=== PATIENT | female | born 1970 | race Two or more races ===

== ENCOUNTER 2017-03-17 08:51 | Day surgery (SDC) | payer MEDICAID ==
[~2017-03-17] VITALS: Ht 167.6 cm; Wt 128.4 kg
[2017-03-17] MEDS ORDERED: IODIXANOL 320MG/ML 100ML BTL IV ONE (09:20)
[2017-03-17] MEDS ORDERED: LIDOCAINE 2%HCL (LOCAL ANESTH.) INJ 20ML MDV ONE (09:20)
[2017-03-17] MEDS ORDERED: MIDAZOLAM HCL 1MG/1ML-2 ML VIAL ONE ×2 (10:05→10:46)
[2017-03-17] MEDS ORDERED: fentaNYL CITRATE 100 MCG/2 ML VL ONE (10:05)
[2017-03-17] MEDS ORDERED: ANGIOMAX 250 MG VIAL IV ONE (10:06)
[2017-03-17] MEDS ORDERED: SODIUM CHL 0.9% 0 ML ONE (10:06)
[2017-03-17] MEDS ORDERED: VERAPAMIL 2.5MG/ML INJ 2ML VIAL IV ONE (10:07)
[2017-03-17] MEDS ORDERED: HEPARIN SODIUM (PORCINE) 5000 UNITS/ML 1ML VIAL ONE (10:49)
[2017-03-17] MEDS ORDERED: HYDROcodone-ACET 5/325MG TAB PO PRN (12:15)
[2017-03-17] MEDS ORDERED: ACETAMINOPHEN 500 MG TAB PO PRN (12:15)
== END 2017-03-17 13:59 | disposition home or self-care (01) ==
LOC: CATH 08:51
PROVIDERS: ATTEND Internal Medicine
DX: R94.39 Abnormal result of other cardiovascular function study (principal); I10 Essential (primary) hypertension
CPT/HCPCS: 93458; C1760; C1769; C1894; J1644; J3010; J7030; 99152; J2250; Q9967

== ENCOUNTER 2017-07-10 23:57 | Inpatient (IN) | payer MEDICAID ==
[~2017-07-10] VITALS: Ht 167.6 cm; Wt 129.7 kg
[2017-07-11] MEDS ORDERED: ALBUTEROL SULF 2.5 MG/0.5ML(0.5%) NEB SOLN NEB ONE (00:45)
[2017-07-11] MEDS ORDERED: methylPREDNISolone SOD SUCC 125 MG/2 ML VL IV ONE (00:45)
[2017-07-11] MEDS ORDERED: IPRATROPIUM BROM 0.5 MG/2.5ML INH SOL NEB ONE (00:45)
[2017-07-11 01:00] LABS: Basophils # (auto) 0.1 uL; Basophils % (auto) 1.1 % (0.0-2.0); Eosinophils # (auto) 0.3 uL; Eosinophils % (auto) 4.4 % (0.0-7.0); Hematocrit 46.1 % (36.0-46.0); Hemoglobin 15.3 g/dL (12.2-16.2); Lymphocytes % (auto) 32.6 % (10.0-50.0); Mean Corpuscular Hemoglobin 29.5 pg (28.0-32.0); Mean Corpuscular Hgb Conc. 33.2 g/dL (32.0-36.0); Mean Platelet Volume 8.6 fL (7.4-10.4); Monocytes # (auto) 0.7 uL; Monocytes % (auto) 11.4 % (0.0-12.0); Neutrophils # (auto) 3.1 uL; Neutrophils % (auto) 50.5 % (37.0-80.0); Platelet Count (auto) 296 10^3/uL (140-450); White Blood Cell 6.2 10^3/uL (4.4-10.8)
[2017-07-11 01:08] LABS: INR 0.97 (0.9-1.15); Partial Thromboplastin Time 28.5 sec (22.64-33.71); Prothrombin Time 10.6 sec (9.37-12.3)
[2017-07-11 01:13] LABS: Albumin 3.5 g/dL (3.4-5.0); Anion Gap 8 (5-15); Aspartate Aminotransferase 77 U/L (15-37); BUN/Creatinine Ratio 9.2; Blood Urea Nitrogen 7 mg/dL (7-18); Calcium 8.7 mg/dL (8.5-10.1); Carbon Dioxide 23 mmol/L (21-32); Chloride 111 mmol/L (98-107); GFR African American 106 mL/min; GFR Non-African American 88 mL/min; Glucose 108 mg/dL (74-106); Potassium 3.9 mmol/L (3.5-5.1); Sodium 142 mmol/L (136-145)
[2017-07-11 01:18] LABS: Alkaline Phosphatase 92 U/L (45-117); Bilirubin, Total 0.3 mg/dL (0.2-1.0)
[2017-07-11 01:21] LABS: Temperature: 23.3 C (20.0-25.0)
[2017-07-11] MEDS ORDERED: ALPRAZolam 0.25 MG TAB PO PRN (04:45)
[2017-07-11] MEDS ORDERED: HYDROcodone-ACET 5/325MG TAB PO PRN (04:45)
[2017-07-11] MEDS ORDERED: ALBUTEROL SULF 2.5 MG/0.5ML(0.5%) NEB SOLN NEB PRN (04:45)
[2017-07-11] MEDS ORDERED: IPRATROPIUM BROM 0.5 MG/2.5ML INH SOL NEB PRN (04:45)
[2017-07-11] MEDS ORDERED: ACETAMINOPHEN 325 MG TAB PO PRN (04:45)
[2017-07-11] MEDS ORDERED: ONDANSETRON HCL 4 MG/2 ML VIAL IV PRN (04:45)
[2017-07-11] MEDS ORDERED: ENOXAPARIN SOD 40 MG/0.4 ML SYRINGE SC SCH (10:00)
[2017-07-11] MEDS ORDERED: methylPREDNISolone SOD SUCC 125 MG/2 ML VL IV SCH (10:00)
[2017-07-11] MEDS ORDERED: LISINOPRIL 10 MG TAB PO SCH (10:00)
[2017-07-11] MEDS ORDERED: FAMOTIDINE 20 MG TAB PO SCH (10:00)
[2017-07-11 12:00] VITALS: BP 129/82
[2017-07-11] MEDS ORDERED: ALBU0.084 NEB (13:27)
[2017-07-11] MEDS ORDERED: IPRASOL39 NEB (13:27)
[2017-07-11] MEDS ORDERED: PRED-559 PO (13:29)
[2017-07-11] MEDS ORDERED: LEVO500T21 PO (13:29)
[2017-07-11] MEDS ORDERED: LEVOFLOXACIN 500 MG TAB PO SCH (13:30)
[2017-07-11] MEDS ORDERED: guaiFENesin-DEXTROMETHORPHAN 5ML SYR PO PRN (13:30)
[2017-07-11 16:45] VITALS: BP 129/82
== END 2017-07-11 17:20 | disposition home health service (06) | DRG 140 ==
LOC: ER 07-11 00:03 → OVERFLOW 07-11 00:04 → EAST 07-11 08:18 → WEST WING 07-11 10:39
PROVIDERS: ADMIT Nurse Practitioner; ATTEND Internal Medicine
DX: J44.1 Chronic obstructive pulmonary disease with (acute) exacerbation (principal); E66.2 Morbid (severe) obesity with alveolar hypoventilation; I10 Essential (primary) hypertension; J45.901 Unspecified asthma with (acute) exacerbation; J98.11 Atelectasis; Z90.49 Acquired absence of other specified parts of digestive tract; Z90.710 Acquired absence of both cervix and uterus; Z88.1 Allergy status to other antibiotic agents; Z79.899 Other long term (current) drug therapy; Z86.73 Personal history of transient ischemic attack (TIA), and cerebral infarction without residual deficits; Z68.42 Body mass index [BMI] 45.0-49.9, adult
CPT/HCPCS: 36415; 71010; 80053; 83880; 84484; 85025; 85610; 85730; 94640; 96374

== ENCOUNTER 2018-02-20 00:17 | Emergency (ER) | payer MEDICAID ==
[~2018-02-20] VITALS: Ht 167.6 cm; Wt 129.3 kg
[~2018-02-20 00:17] MED LIST: ALBU0.084 NEB; IPRASOL39 NEB; LEVO500T21 PO; PRED-559 PO
[2018-02-20 01:10] LABS: Basophils # (auto) 0.1 uL; Basophils % (auto) 1.6 % (0.0-2.0); Eosinophils # (auto) 0.3 uL; Eosinophils % (auto) 4.9 % (0.0-7.0); Hematocrit 46.2 % (36.0-46.0); Hemoglobin 15.5 g/dL (12.2-16.2); Lymphocytes # (auto) 2.2 uL; Lymphocytes % (auto) 33.7 % (10.0-50.0); Mean Corpuscular Hemoglobin 30.1 pg (28.0-32.0); Mean Corpuscular Hgb Conc. 33.5 g/dL (32.0-36.0); Mean Corpuscular Volume 89.6 fL (80.0-100.0); Monocytes # (auto) 0.6 uL; Monocytes % (auto) 9.1 % (0.0-12.0); Neutrophils # (auto) 3.4 uL; Neutrophils % (auto) 50.7 % (37.0-80.0); Nucleated Red Blood Cells % 0.1 %; Platelet Count (auto) 264 10^3/uL (140-450); Red Blood Cells 5.15 10^6/uL (4.0-5.20); Red Cell Distribution Width 14.6 % (11.8-14.3); White Blood Cell 6.6 10^3/uL (4.4-10.8)
[2018-02-20 01:28] LABS: Albumin 3.5 g/dL (3.4-5.0); Anion Gap 8 (5-15); Calcium 8.8 mg/dL (8.5-10.1); Carbon Dioxide 17 mmol/L (21-32); Chloride 115 mmol/L (98-107); Glucose 104 mg/dL (74-106); Magnesium 2.3 mg/dL (1.6-2.6); Potassium 3.5 mmol/L (3.5-5.1); Sodium 140 mmol/L (136-145)
[2018-02-20 01:34] LABS: Alanine Aminotransferase 41 U/L (13-56); Alkaline Phosphatase 85 U/L (45-117); Aspartate Aminotransferase 41 U/L (15-37); BUN/Creatinine Ratio 8.9; Bilirubin, Total 0.4 mg/dL (0.2-1.0); Blood Urea Nitrogen 7 mg/dL (7-18); GFR African American 101 mL/min; GFR Non-African American 84 mL/min; Total Protein 7.7 g/dL (6.4-8.2)
[2018-02-20 03:24] LABS: Urine WBC None Seen /hpf (0 - 5)
[2018-02-20 03:57] LABS: Urine Bacteria NONE SEEN /hpf (None Seen); Urine Blood Negative /uL (Negative); Urine Specific Gravity 1.007 (1.001-1.035)
[2018-02-20 07:15] VITALS: BP 131/66
[2018-02-20] MEDS ORDERED: ASPirin 81 mg TAB PO ONE (08:15)
== END 2018-02-20 08:58 | disposition left against medical advice (07) ==
LOC: ER 00:17
DX: R07.89 Other chest pain (principal); M79.1 Myalgia; J44.9 Chronic obstructive pulmonary disease, unspecified; I10 Essential (primary) hypertension; Z90.49 Acquired absence of other specified parts of digestive tract; Z90.710 Acquired absence of both cervix and uterus
CPT/HCPCS: 36415; 71045; 80053; 81001; 83735; 84484; 85025; 93005

== ENCOUNTER 2023-05-28 08:16 | Emergency (ER) | payer MEDICAID ==
[~2023-05-28] VITALS: Ht 167.6 cm; Wt 124.6 kg
[~2023-05-28 08:16] MED LIST changes: -LEVO500T21 PO; +LEVO500T31 PO
[2023-05-28] MEDS ORDERED: MORPHINE SULFATE 4 MG/ML SYR/VIAL IV ONE (08:30)
[2023-05-28] MEDS ORDERED: PANTOPRAZOLE 40 MG/10 ML VIAL INJ IV ONE (08:30)
[2023-05-28] MEDS ORDERED: ONDANSETRON HCL 4 MG/2 ML VIAL IV ONE (08:30)
[2023-05-28] MEDS ORDERED: SODIUM CHLORIDE 0.9% 1,000 ML IVB ONE (08:30)
[2023-05-28 08:54] LABS: Basophils # (auto) 0.1 10 ^3/uL (0-0.2); Basophils % (auto) 0.9 % (0.0-2.0); Eosinophils # (auto) 0.1 10 ^3/uL (0-0.8); Eosinophils % (auto) 1.1 % (0.0-7.0); Hematocrit 45.4 % (36.0-46.0); Hemoglobin 15.2 g/dL (12.2-16.2); Lymphocytes # (auto) 0.4 10 ^3/uL (0.4-5.4); Lymphocytes % (auto) 4.7 % (10.0-50.0); Mean Corpuscular Hemoglobin 31.2 pg (28.0-32.0); Mean Corpuscular Hgb Conc. 33.4 g/dL (32.0-36.0); Mean Corpuscular Volume 93.5 fL (80.0-100.0); Monocytes # (auto) 0.4 10 ^3/uL (0-1.3); Neutrophils # (auto) 8.4 10 ^3/uL (1.6-8.6); Neutrophils % (auto) 89.3 % (37.0-80.0); Nucleated Red Blood Cells % 0.2 %; Red Blood Cells 4.85 10^6/uL (4.0-5.20); Red Cell Distribution Width 13.9 % (11.8-14.3); White Blood Cell 9.5 10^3/uL (4.4-10.8)
[2023-05-28 09:31] LABS: Potassium 3.3 mmol/L (3.5-5.1)
[2023-05-28 09:32] LABS: Albumin 3.6 g/dL (3.4-5.0)
[2023-05-28 09:35] LABS: Bilirubin, Total 3.8 mg/dL (0.2-1.0); Total Protein 7.6 g/dL (6.4-8.2)
[2023-05-28] MEDS ORDERED: POTASSIUM CHL 20MEQ/100ML 100 ML IV ONE (13:45)
[2023-05-28] MEDS ORDERED: PANTOPRAZOLE 40 MG/10 ML VIAL INJ IV SCH (16:15)
[2023-05-28] MEDS ORDERED: DEXTROSE (50%) 50ML SYRG IV PRN (16:15)
[2023-05-28] MEDS ORDERED: hydrALAZINE HCL 20 MG/ML VL IV PRN (16:15)
[2023-05-28] MEDS: ACCU-CHEK COMFORT CURVE STRIP VI SCH (17:01)
[2023-05-28] MEDS: InsuLIN REG 1unit/0.01ml Soln (100units/ml) SC SCH (17:08)
[2023-05-29] MEDS ORDERED: POTASSIUM CHL 20 Meq TABLET PO ONE (02:00)
[2023-05-29] MEDS: InsuLIN REG 1unit/0.01ml Soln (100units/ml) SC SCH ×2 (06:00)
[2023-05-29] MEDS: ACCU-CHEK COMFORT CURVE STRIP VI SCH ×2 (06:09)
[2023-05-29] MEDS ORDERED: ONDANSETRON HCL 4 MG/2 ML VIAL IV ONE ×3 (09:30→17:45)
[2023-05-29] MEDS ORDERED: MORPHINE SULFATE 4 MG/ML SYR/VIAL IV ONE ×3 (09:30→17:45)
[2023-05-29 09:56] LABS: Hepatitis A Ab IgM Negative; Hepatitis B Core IgM Negative
[2023-05-29 09:57] LABS: Hepatitis C Antibody Negative (Negative)
[2023-05-29 17:52] VITALS: BP 124/63
== END 2023-05-29 18:15 | disposition left against medical advice (07) ==
LOC: ER 08:16
DX: K85.90 Acute pancreatitis without necrosis or infection, unspecified (principal); E80.6 Other disorders of bilirubin metabolism; K80.50 Calculus of bile duct without cholangitis or cholecystitis without obstruction; J44.9 Chronic obstructive pulmonary disease, unspecified; I11.0 Hypertensive heart disease with heart failure; I50.9 Heart failure, unspecified; Z86.73 Personal history of transient ischemic attack (TIA), and cerebral infarction without residual deficits; E11.9 Type 2 diabetes mellitus without complications; Z90.49 Acquired absence of other specified parts of digestive tract; Z90.710 Acquired absence of both cervix and uterus; Z88.1 Allergy status to other antibiotic agents
CPT/HCPCS: 36415; 74176; 74181; 80053; 80074; 82962; 83690; 85025; 93005; 96361; 96374; 96375; 96376; 99285; C9113; J1815; J2270; J2405; J3480